=== PATIENT | female | born 1955 | race Caucasian/White ===

== ENCOUNTER 2017-05-17 05:02 | Day surgery (SDC) | payer BC ==
[~2017-05-17 05:02] MED LIST: DIOVAN80 MG PO; HYZAAR 50-12.51 TAB PO; LEVOTHROID75 MCG PO; NORCO 10/325 TA1 TA1 PO; OMEPRAZOLE40 MG PO; VITAMIN D50000 UNIT PO; ZOCOR40 MG PO
[2017-05-17 05:56] VITALS: BP 123/86; BMI 30.3
[2017-05-17 06:10] LABS: BASOPHILS 0.5 % (0-2); EOSINOPHILS 1.9 % (0-7); HEMATOCRIT 35.2 % (36.0-48.0); HEMOGLOBIN 11.5 g/dL (12-16); LYMPHOCYTES 42.3 % (15-50); MCH 28.5 pg (26.0-34.0); MCHC 32.7 g/dL (31.0-37.0); MCV 87.1 fL (80.0-100.0); MEAN PLATELET VOLUME 8.8 fL (7.4-10.4); MONOCYTES 9.8 % (2-11); NEUTROPHILS 45.5 % (40-80); PLATELET COUNT 266 10x3/uL (130-400); RBC 4.04 10x6/uL (4.00-5.40); RDW 13.4 % (11.5-14.5); WBC 5.7 10x3/uL (4.8-10.8)
[2017-05-17 07:31] LABS: CALC OSMOLALITY 270 mosm/kg (275-300); CALCIUM 9.2 mg/dL (8.5-10.1); CARBON DIOXIDE 31.5 mmol/L (21.0-32.0); CHLORIDE - SERUM 98 mmol/L (98-107); CREATININE - SERUM 0.8 mg/dL (0.6-1.3); GLUCOSE 109 mg/dL (74-106); POTASSIUM - SERUM 3.4 mmol/L (3.5-5.1); SODIUM 135 mmol/L (136-145); UREA NITROGEN 13 mg/dL (7-18); eGFR NON AFRICAN AMERICAN 77 mL/min (90-120)
[2017-05-17] MEDS ORDERED: HYDROCODONE-APA1 TAB PO (08:23)
--- NOTE | 2017-05-17 09:37 | NUR ---
0920--PT DIOGO, IV SHARIFA VARMA RN
--- NOTE | 2017-05-17 09:59 | NUR ---
0955--DISCHARGE INSTRUCTIONS GIVEN, PT VERBALIZES UNDERSTANDING. PT OFF UNIT VIA PEPE. AVANI BUTT
--- NOTE | 2017-05-24 14:02 | OP ---
PATIENT NAME: CHELI PURVIS MEDICAL RECORD: [id number] :53 LOCATION:[facility] ADMISSION DATE: SURGEON: FOREIGN STEVENS MD DATE OF OPERATION: 05/17/2017 PREOPERATIVE DIAGNOSES: 1. Anal stenosis. 2. Hypertension. 3. Hypercholesterolemia. 4. Hypothyroidism. POSTOPERATIVE DIAGNOSES: 1. Anal stenosis. 2. Hypertension. 3. Hypercholesterolemia. 4. Hypothyroidism. PROCEDURE: Anal exam under anesthesia with anal dilatation. SURGEON: Foreign Stevens MD REPORT OF PROCEDURE: The patient was placed in the lithotomy position, and the perianal region was prepped and draped in sterile fashion. 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 Multiple anal dilators were inserted as we slowly dilated up the staple line. Eventually, we were able to use our largest bullet dilator and was able to easily dilate up this anastomotic site. At the conclusion, there was some oozing from the tissues, but there was no sign of any full thickness tearing. I was able to easily pass the dilator in and out through the anus at this point. We then irrigated out the anus and covered it with 4 x 4. COMPLICATIONS: None. CONDITION: Stable. ANESTHESIA: General endotracheal. BLOOD LOSS: Minimal. TRANSINT:[id number] Voice Confirmation ID: [id number] DOCUMENT ID: [id number] FOREIGN STEVENS MD at 1402 CC: VINCE DAWN MD [id number] DICTATION DATE: 05/17/17 0832 SUPERVISOR COVERING AND LINING: 05/17/17 1235 [facility] 05/17/17 [facility] [address] [place] [address]
== END 2017-05-17 09:55 | disposition home or self-care (01) ==
LOC: D.OPS 05:02
PROVIDERS: Surgery
DX: K62.4 Stenosis of anus and rectum (principal); I10 Essential (primary) hypertension; E78.00 Pure hypercholesterolemia, unspecified; E03.9 Hypothyroidism, unspecified; G47.30 Sleep apnea, unspecified; K21.9 Gastro-esophageal reflux disease without esophagitis; Z01.812 Encounter for preprocedural laboratory examination